=== PATIENT | female | born 1950 | race Native Hawaiian/Other Pacific Islander ===

== ENCOUNTER 2016-09-09 08:27 | Outpatient (CLI) | payer OTHER, BC ==
[~2016-09-09 08:27] MED LIST: ATROVENT NAS0.06 %; CLONAZEP ODT0.5 MG PO; METO50TA63 PO; NEXIUM40 M1 PO; SERT100T PO
== END 2016-09-09 09:27 | disposition home or self-care (01) ==
LOC: MAMMO 08:27
DX: Z12.31 Encounter for screening mammogram for malignant neoplasm of breast (principal)
CPT/HCPCS: G0202-TC

== ENCOUNTER 2017-05-03 16:04 | Outpatient (CLI) | payer OTHER, BC ==
[2017-05-03 16:24] LABS: PLATELET COUNT 191 K/uL (152-353)
[2017-05-03 16:39] LABS: POTASSIUM 4.4 mmol/L (3.6-5.2)
== END 2017-05-03 17:05 | disposition home or self-care (01) ==
LOC: LABW 16:04
PROVIDERS: Specialist
DX: R07.2 Precordial pain (principal); Z01.810 Encounter for preprocedural cardiovascular examination
CPT/HCPCS: 36415; 80053; 85027

== ENCOUNTER 2017-09-14 10:44 | Outpatient (CLI) | payer OTHER, BC | END 2017-09-14 19:08 | disposition home or self-care (01) | LOC: MAMMO 10:44 | DX: Z12.31 Encounter for screening mammogram for malignant neoplasm of breast (principal) ==

== ENCOUNTER 2017-10-11 10:40 | Outpatient (CLI) | payer OTHER, BC | END 2017-10-11 20:24 | disposition home or self-care (01) | LOC: RAD 10:40 | DX: Z01.818 Encounter for other preprocedural examination (principal) ==

== ENCOUNTER 2018-08-02 12:21 | Outpatient (CLI) | payer OTHER, BC ==
[2018-08-02 13:23] LABS: PLATELET COUNT 211 K/uL (152-353)
[2018-08-02 14:09] LABS: POTASSIUM 4.2 mmol/L (3.6-5.2)
== END 2018-08-02 21:07 | disposition home or self-care (01) ==
LOC: LABW 12:21
PROVIDERS: Internal Medicine
DX: N18.4 Chronic kidney disease, stage 4 (severe) (principal); Z79.899 Other long term (current) drug therapy
CPT/HCPCS: 36415; 80053; 80074; 81000; 82043; 82306; 82330; 82552; 82570; 82607; 82728; 82746; 83036; 83540; 83550; 83735; 83970; 84100; 84155; 84439; 84443; 84550; 85027; 85651; 86039; 86430

== ENCOUNTER 2018-08-11 08:08 | Outpatient (CLI) | payer OTHER, BC ==
[~2018-08-11] VITALS: Ht 157.5 cm; Wt 79.4 kg
== END 2018-08-11 23:33 | disposition home or self-care (01) ==
LOC: INF 08:08
DX: D50.8 Other iron deficiency anemias (principal)
CPT/HCPCS: 96365; J1439

== ENCOUNTER 2018-08-18 09:54 | Outpatient (CLI) | payer OTHER, BC ==
[~2018-08-18] VITALS: Ht 157.5 cm; Wt 79.4 kg
== END 2018-08-18 23:25 | disposition home or self-care (01) ==
LOC: INF 09:54
DX: D50.8 Other iron deficiency anemias (principal)
CPT/HCPCS: 96365; J1439

== ENCOUNTER 2018-08-25 14:30 | Outpatient (CLI) | payer OTHER, BC ==
[2018-08-25 15:00] LABS: PLATELET COUNT 192 K/uL (152-353)
== END 2018-08-25 21:47 | disposition home or self-care (01) ==
LOC: LABW 14:30
PROVIDERS: Internal Medicine
DX: N18.4 Chronic kidney disease, stage 4 (severe) (principal)
CPT/HCPCS: 36415; 80053; 82330; 83735; 83970; 84100; 85027

== ENCOUNTER 2018-09-22 09:49 | Outpatient (CLI) | payer OTHER, BC | END 2018-09-22 21:36 | disposition home or self-care (01) | LOC: MAMMO 09:49 | DX: Z12.31 Encounter for screening mammogram for malignant neoplasm of breast (principal) ==

== ENCOUNTER 2018-10-19 09:28 | Outpatient (CLI) | payer OTHER, BC | END 2018-10-19 23:59 | disposition home or self-care (01) | LOC: US 09:28 | DX: R10.9 Unspecified abdominal pain (principal) ==

== ENCOUNTER 2018-11-08 08:26 | Outpatient (CLI) | payer OTHER, BC ==
[2018-11-08 09:39] LABS: PLATELET COUNT 187 K/uL (152-353)
[2018-11-08 09:45] LABS: POTASSIUM 4.6 mmol/L (3.6-5.2)
== END 2018-11-08 23:48 | disposition home or self-care (01) ==
LOC: CT 08:26
PROVIDERS: Nurse Practitioner Family
DX: N18.4 Chronic kidney disease, stage 4 (severe) (principal); Z79.899 Other long term (current) drug therapy; R10.9 Unspecified abdominal pain
CPT/HCPCS: 36415; 80053; 83036; 85027

== ENCOUNTER 2019-03-17 09:02 | Outpatient (CLI) | payer OTHER, BC | END 2019-03-17 23:36 | disposition home or self-care (01) | LOC: LABW 09:02 | PROVIDERS: Nurse Practitioner Adult Health | DX: I25.10 Atherosclerotic heart disease of native coronary artery without angina pectoris (principal); E78.2 Mixed hyperlipidemia; Z79.899 Other long term (current) drug therapy | CPT/HCPCS: 36415; 80061; 80076 ==

== ENCOUNTER 2019-07-04 07:18 | Outpatient (CLI) | payer OTHER, BC ==
[2019-07-04 07:50] LABS: PLATELET COUNT 171 K/uL (152-353)
[2019-07-04 08:00] LABS: POTASSIUM 4.2 mmol/L (3.6-5.2)
== END 2019-07-04 20:13 | disposition home or self-care (01) ==
LOC: LAB 07:18
PROVIDERS: Internal Medicine
DX: N18.3 Chronic kidney disease, stage 3 (moderate) (principal)
CPT/HCPCS: 36415; 80053; 81000; 82330; 82570; 83735; 83970; 84100; 84155; 85027

== ENCOUNTER 2019-08-15 08:54 | Outpatient (CLI) | payer OTHER, BC ==
[2019-08-15 10:21] LABS: PLATELET COUNT 200 K/uL (152-353)
== END 2019-08-15 20:52 | disposition home or self-care (01) ==
LOC: LABW 08:54
PROVIDERS: Nurse Practitioner Family
DX: R53.83 Other fatigue (principal)
CPT/HCPCS: 36415; 80053; 84439; 84443; 84481; 85027

== ENCOUNTER 2019-10-02 07:07 | Outpatient (CLI) | payer OTHER, BC | END 2019-10-02 19:08 | disposition home or self-care (01) | LOC: LABW 07:07 | PROVIDERS: Nurse Practitioner Adult Health | DX: E78.2 Mixed hyperlipidemia (principal); Z79.899 Other long term (current) drug therapy | CPT/HCPCS: 36415; 80061; 80076 ==

== ENCOUNTER 2019-10-20 12:54 | Outpatient (CLI) | payer OTHER, BC | END 2019-10-20 19:37 | disposition home or self-care (01) | LOC: MAMMO 12:54 | DX: Z12.31 Encounter for screening mammogram for malignant neoplasm of breast (principal) ==

== ENCOUNTER 2019-11-03 11:53 | Outpatient (CLI) | payer OTHER, BC ==
[2019-11-03 12:10] LABS: PLATELET COUNT 189 K/uL (152-353)
[2019-11-03 12:22] LABS: POTASSIUM 4.2 mmol/L (3.6-5.2)
== END 2019-11-03 19:12 | disposition home or self-care (01) ==
LOC: LABW 11:53
PROVIDERS: Internal Medicine
DX: N18.3 Chronic kidney disease, stage 3 (moderate) (principal)
CPT/HCPCS: 36415; 80053; 81000; 82330; 82570; 83735; 83970; 84100; 84155; 85027

== ENCOUNTER 2020-10-30 09:49 | Outpatient (CLI) | payer BC ==
[2020-10-30 10:34] LABS: POTASSIUM 4.4 mmol/L (3.6-5.2)
[2020-10-30 10:40] LABS: PLATELET COUNT 174 K/uL (152-353)
== END 2020-10-30 19:34 | disposition home or self-care (01) ==
LOC: LABW 09:49
PROVIDERS: ATTEND Internal Medicine
DX: E78.2 Mixed hyperlipidemia (principal); Z79.899 Other long term (current) drug therapy; N18.30 Chronic kidney disease, stage 3 unspecified
CPT/HCPCS: 36415; 80053; 80061; 81000; 82248; 82330; 82570; 83735; 83970; 84100; 84155; 85027

== ENCOUNTER 2020-11-28 10:35 | Outpatient (CLI) | payer BC | END 2020-11-28 19:33 | disposition home or self-care (01) | LOC: MAMMO 10:35 | PROVIDERS: ATTEND Nurse Practitioner Family | DX: Z12.31 Encounter for screening mammogram for malignant neoplasm of breast (principal) ==

== ENCOUNTER 2020-12-10 14:18 | Outpatient (CLI) | payer BC ==
[2020-12-10 14:57] LABS: PLATELET COUNT 204 K/uL (152-353)
[2020-12-10 15:28] LABS: POTASSIUM 4.1 mmol/L (3.6-5.2)
== END 2020-12-10 19:27 | disposition home or self-care (01) ==
LOC: LABW 14:18
PROVIDERS: ATTEND Internal Medicine
DX: N18.30 Chronic kidney disease, stage 3 unspecified (principal); R53.83 Other fatigue; E16.2 Hypoglycemia, unspecified; D64.9 Anemia, unspecified; E53.8 Deficiency of other specified B group vitamins
CPT/HCPCS: 36415; 80053; 81000; 82306; 82330; 82570; 82607; 82728; 82746; 83036; 83540; 83550; 83735; 83970; 84100; 84155; 84439; 84443; 85027; 85652; 86038

== ENCOUNTER 2020-12-24 09:21 | Outpatient (CLI) | payer BC | END 2020-12-24 21:01 | disposition home or self-care (01) | LOC: LABW 09:21 | PROVIDERS: ATTEND Specialist | DX: I25.10 Atherosclerotic heart disease of native coronary artery without angina pectoris (principal); E78.2 Mixed hyperlipidemia; Z79.899 Other long term (current) drug therapy | CPT/HCPCS: 36415; 80061; 80076 ==

== ENCOUNTER 2021-04-22 13:12 | Outpatient (CLI) | payer BC ==
[2021-04-22 15:37] LABS: PLATELET COUNT 186 K/uL (152-353)
[2021-04-22 15:53] LABS: POTASSIUM 4.1 mmol/L (3.6-5.2)
== END 2021-04-22 21:25 | disposition home or self-care (01) ==
LOC: LABW 13:12 → RAD 13:12
PROVIDERS: ATTEND Orthopaedic Surgery
DX: M79.644 Pain in right finger(s) (principal); N18.30 Chronic kidney disease, stage 3 unspecified; Z79.899 Other long term (current) drug therapy
CPT/HCPCS: 36415; 80053; 81000; 82330; 82570; 83036; 83735; 83970; 84100; 84155; 85027; 86200; 86430

== ENCOUNTER 2021-06-23 09:00 | Outpatient (CLI) | payer BC | END 2021-06-23 20:04 | disposition home or self-care (01) | LOC: LABW 09:00 | PROVIDERS: ATTEND Nurse Practitioner Adult Health | DX: E78.49 Other hyperlipidemia (principal); Z79.899 Other long term (current) drug therapy | CPT/HCPCS: 36415; 80061; 80076 ==

== ENCOUNTER 2021-09-10 09:01 | Outpatient (CLI) | payer BC ==
[2021-09-10 09:20] LABS: PLATELET COUNT 194 K/uL (152-353)
[2021-09-10 09:38] LABS: POTASSIUM 4.2 mmol/L (3.6-5.2)
== END 2021-09-10 19:56 | disposition home or self-care (01) ==
LOC: LABW 09:01
PROVIDERS: ATTEND Internal Medicine
DX: N18.30 Chronic kidney disease, stage 3 unspecified (principal); Z79.899 Other long term (current) drug therapy
CPT/HCPCS: 36415; 80053; 81000; 82330; 82570; 83036; 83735; 83970; 84100; 84155; 85027

== ENCOUNTER 2022-02-03 11:07 | Outpatient (CLI) | payer BC ==
[2022-02-03 11:37] LABS: PLATELET COUNT 196 K/uL (152-353)
[2022-02-03 11:48] LABS: POTASSIUM 4.3 mmol/L (3.6-5.2)
== END 2022-02-03 19:30 | disposition home or self-care (01) ==
LOC: LABW 11:07
PROVIDERS: ATTEND Internal Medicine
DX: N18.30 Chronic kidney disease, stage 3 unspecified (principal); E53.8 Deficiency of other specified B group vitamins; Z79.899 Other long term (current) drug therapy
CPT/HCPCS: 80053; 81000; 82330; 82570; 82607; 83036; 83735; 83970; 84100; 84156; 85027

== ENCOUNTER 2022-02-06 11:23 | Outpatient (CLI) | payer BC | END 2022-02-06 19:22 | disposition home or self-care (01) | LOC: MAMMO 11:23 | PROVIDERS: ATTEND Nurse Practitioner | DX: Z12.31 Encounter for screening mammogram for malignant neoplasm of breast (principal) ==

== ENCOUNTER 2022-02-20 08:51 | Outpatient (CLI) | payer BC | END 2022-02-20 21:09 | disposition home or self-care (01) | LOC: LABW 08:51 | PROVIDERS: ATTEND Nurse Practitioner Adult Health | DX: E78.49 Other hyperlipidemia (principal); Z79.899 Other long term (current) drug therapy | CPT/HCPCS: 36415; 80061; 80076 ==

== ENCOUNTER 2022-05-01 07:41 | Outpatient (CLI) | payer BC | END 2022-05-01 21:00 | disposition home or self-care (01) | LOC: CT 07:41 | PROVIDERS: ATTEND Internal Medicine Gastroenterology | DX: R19.7 Diarrhea, unspecified (principal); R10.9 Unspecified abdominal pain | CPT/HCPCS: 36415; 82565; 84520; Q9963 ==

== ENCOUNTER 2022-07-20 11:28 | Outpatient (CLI) | payer BC ==
[2022-07-20 12:04] LABS: PLATELET COUNT 167 K/uL (152-353)
[2022-07-20 12:14] LABS: POTASSIUM 4.3 mmol/L (3.6-5.2)
== END 2022-07-20 20:01 | disposition home or self-care (01) ==
LOC: LABW 11:28
PROVIDERS: ATTEND Internal Medicine
DX: N18.30 Chronic kidney disease, stage 3 unspecified (principal); E53.8 Deficiency of other specified B group vitamins; E16.2 Hypoglycemia, unspecified
CPT/HCPCS: 36415; 80053; 81002; 82330; 82570; 82607; 83036; 83735; 83970; 84100; 84156; 85027

== ENCOUNTER 2022-08-07 08:48 | Outpatient (CLI) | payer BC | END 2022-08-07 19:16 | disposition home or self-care (01) | LOC: LABW 08:48 | PROVIDERS: ATTEND Specialist | DX: E78.49 Other hyperlipidemia (principal) | CPT/HCPCS: 36415; 80061; 80076 ==

== ENCOUNTER 2022-10-01 09:22 | Outpatient (CLI) | payer BC | END 2022-10-01 19:39 | disposition home or self-care (01) | LOC: LABW 09:22 | PROVIDERS: ATTEND Nurse Practitioner Adult Health | DX: E78.49 Other hyperlipidemia (principal); I25.10 Atherosclerotic heart disease of native coronary artery without angina pectoris | CPT/HCPCS: 36415; 80061; 80076 ==

== ENCOUNTER 2022-11-16 14:21 | Outpatient (CLI) | payer BC ==
[2022-11-16 14:53] LABS: POTASSIUM 4.3 mmol/L (3.6-5.2)
[2022-11-16 14:59] LABS: PLATELET COUNT 183 K/uL (152-353)
== END 2022-11-16 19:22 | disposition home or self-care (01) ==
LOC: LABW 14:21
PROVIDERS: ATTEND Internal Medicine
DX: N18.30 Chronic kidney disease, stage 3 unspecified (principal); E53.8 Deficiency of other specified B group vitamins; Z79.899 Other long term (current) drug therapy
CPT/HCPCS: 36415; 80053; 81002; 82330; 82570; 82607; 83036; 83735; 83970; 84100; 84156; 85027

== ENCOUNTER 2023-01-28 08:04 | Outpatient (CLI) | payer BC | END 2023-01-28 17:00 | LOC: LABW 08:04 | PROVIDERS: ATTEND Nurse Practitioner Adult Health | DX: E78.2 Mixed hyperlipidemia (principal) | CPT/HCPCS: 36415; 80061; 80076 ==

== ENCOUNTER 2023-02-12 13:28 | Outpatient (CLI) | payer BC | END 2023-02-12 19:26 | disposition home or self-care (01) | LOC: MAMMO 13:28 | PROVIDERS: ATTEND Nurse Practitioner | DX: Z12.31 Encounter for screening mammogram for malignant neoplasm of breast (principal) ==

== ENCOUNTER 2023-06-21 10:01 | Outpatient (CLI) | payer BC | END 2023-06-21 19:15 | disposition home or self-care (01) | LOC: LABW 10:01 | PROVIDERS: ATTEND Nurse Practitioner | DX: E78.2 Mixed hyperlipidemia (principal); I25.10 Atherosclerotic heart disease of native coronary artery without angina pectoris | CPT/HCPCS: 36415; 80061; 80076 ==